=== PATIENT | male | born 1985 | race Caucasian/White ===

== ENCOUNTER 2018-11-17 01:24 | Emergency (ER) | payer BC, OTHER ==
[~2018-11-17 01:24] MED LIST: BACDS PO; CEP500 PO; FAM20 PO; IBU600 PO; LOR5/325 PO; NO CURRENT MEDS; NO ROUTINE MEDS; PER PO; PRO25 PO
--- NOTE | 2018-11-17 01:25 | ER Report ---
History and Physical Time Seen By MD: 01:23 HPI/ROS CHIEF COMPLAINT: Right flank pain HISTORY OF PRESENT ILLNESS: 32-year-old male presents with onset of right flank pain around 6:30 PM last evening. It became very intense around 8. Patient s aid several episodes of vomiting. Patient can use get relief by laying in a hot bathtub of water, the minute he gets out the pain returns. She states she's been having some intermittent low-grade right flank pain over the last several weeks to months. They've all resolved spontaneously. Tonight. It's unbearable REVIEW OF SYSTEMS: Respiratory: No cough, no dyspnea. Cardiovascular: No chest pain, no palpitations. Gastrointestinal: As above Musculoskeletal: As above Allergies: Coded Allergies: Penicillins (Verified Adverse Reaction, Unknown, "FEEL LIKE I HAVE THE FLU", 11/17/18) Uncoded Allergies: COLD AIR PRODUCES HIVES (Allergy, Mild, 06/01/07) Home Meds Active Scripts Tamsulosin Hcl (FLOMAX) 0.4 Mg Cap.er.24h, 0.4 MG PO QHS for ureteral relaxation, #14 CAP Prov:MICH VIERA DO 11/17/18 Ondansetron 4 Mg Odt (ONDANSETRON 4 MG ODT) 4 Mg Tab.rapdis, 4 MG PO Q6H PRN for PAIN, #15 TAB Prov:MICH VIERA DO 11/17/18 Hydrocodone Bit/Acetaminophen (HYDROCODON-ACETAMINOPHEN 5-325) 1 Each Tablet, 1 EACH PO Q4-6H PRN for PAIN, #15 TAKE ONE TABLET BY MOUTH EVERY 4-6 HOURS NEEDED FOR PAIN Prov:MICH VIERA DO 11/17/18 Reported Medications [No Routine Meds] No Conflict Check, 0 Refills 01/08/11 Past Medical/Surgical History History of kidney stones, history of genital malrotation of the gut, Reviewed Nurses Notes: Yes Old Medical Records Reviewed: Yes Hx Smoking: No Hx Substance Use Disorder: No Hx Alcohol Use: No Constitutional Vital Sign - Last 24 Hours 11/17/18 11/17/18 11/17/18 11/17/18 01:26 01:28 01:30 01:39 Temp 97.6 Pulse 70 81 Resp 20 B/P (MAP) 145/94 (111) 145/94 139/93 (108) Pulse Ox 94 95 O2 Delivery Room Air 11/17/18 11/17/18 11/17/18 11/17/18 01:54 02:00 02:09 02:11 Pulse 82 61 B/P (MAP) 141/99 (113) Pulse Ox 95 98 O2 Flow Rate 2.0 11/17/18 11/17/18 11/17/18 11/17/18 02:14 02:29 02:30 02:44 Pulse 63 64 66 B/P (MAP) 131/94 (106) Pulse Ox 97 11/17/18 02:48 B/P (MAP) 136/98 (111) Intake and Output 11/16/18 11/16/18 11/17/18 15:01 23:01 07:01 Intake Total 1000 ml Balance 1000 ml Physical Exam Vital signs stable, afebrile, pulse ox normal General Appearance: The patient is alert, has no immediate need for airway protection and no current signs of toxicity. Slightly pale appearing, skin warm and dry Eyes: Pupils equal and round no injection. Respiratory: Chest is non tender, lungs are clear to auscultation. Cardiac: regular rate and rhythm Gastrointestinal: Abdomen is soft and non tender, no masses, bowel sounds normal.+ Right CVA tenderness Musculoskeletal: Neck: Neck is supple and non tender. Extremities have full range of motion and are non tender. Skin: No rashes or lesions. DIFFERENTIAL DIAGNOSIS: After history and physical exam differential diagnosis was considered for flank pain including but not limited to musculoskeletal causes, kidney stone, pyelonephritis, shingles, and intra-abdominal causes such as diverticulitis and appendicitis. Medical Decision Making Data Points Result Diagram: 11/17/1813411/17/18134 Laboratory Hematology Test 11/17/18 01:35 Red Blood Count 5.46 M/uL (4.00-5.60) Mean Corpuscular Volume 89.2 fL (80.0-96.0) Mean Corpuscular Hemoglobin 30.7 pg (26.0-33.0) Mean Corpuscular Hemoglobin Concent 34.4 g/dL (32.0-36.0) Red Cell Distribution Width 12.2 % (11.5-14.5) Mean Platelet Volume 9.4 fL (7.2-11.1) Neutrophils (%) (Auto) 55.1 % (39.4-72.5) Lymphocytes (%) (Auto) 34.0 % (17.6-49.6) Monocytes (%) (Auto) 9.2 % (4.1-12.4) Eosinophils (%) (Auto) 1.4 % (0.4-6.7) Basophils (%) (Auto) 0.3 % (0.3-1.4) Nucleated RBC Relative Count (auto) 0.1 /100WBC Neutrophils # (Auto) 4.6 K/uL (2.0-7.4) Lymphocytes # (Auto) 2.8 K/uL (1.3-3.6) Monocytes # (Auto) 0.8 K/uL (0.3-1.0) Eosinophils # (Auto) 0.1 K/uL (0.0-0.5) Basophils # (Auto) 0.0 K/uL (0.0-0.1) Nucleated RBC Absolute Count (auto) 0.01 K/uL Sodium Level 143 mmol/L (137-145) Potassium Level 4.0 mmol/L (3.5-5.0) Chloride Level 107 mmol/L (98-107) Carbon Dioxide Level 21 mmol/L (22-30) Blood Urea Nitrogen 16 mg/dl (9-21) Creatinine 1.40 mg/dl (0.66-1.25) Glomerular Filtration Rate Calc 58.0 Random Glucose 124 mg/dl (75-110) Calcium Level 10.0 mg/dl (8.4-10.2) Total Bilirubin 1.1 mg/dl (0.2-1.3) Aspartate Amino Transf (AST/SGOT) 29 U/L (0-35) Alanine Aminotransferase (ALT/SGPT) 55 U/L (0-56) Alkaline Phosphatase 100 U/L (0-126) Total Protein 8.6 g/dl (6.3-8.2) Albumin 5.0 g/dl (3.5-5.0) Amylase Level 95 U/L (0-110) Lipase 116 U/L (23-300) Chemistry Test 11/17/18 01:35 White Blood Count 8.3 k/uL (4.5-11.0) Red Blood Count 5.46 M/uL (4.00-5.60) Hemoglobin 16.8 g/dL (14.0-18.0) Hematocrit 48.8 % (42.0-52.0) Mean Corpuscular Volume 89.2 fL (80.0-96.0) Mean Corpuscular Hemoglobin 30.7 pg (26.0-33.0) Mean Corpuscular Hemoglobin Concent 34.4 g/dL (32.0-36.0) Red Cell Distribution Width 12.2 % (11.5-14.5) Platelet Count 256 K/uL (150-450) Mean Platelet Volume 9.4 fL (7.2-11.1) Neutrophils (%) (Auto) 55.1 % (39.4-72.5) Lymphocytes (%) (Auto) 34.0 % (17.6-49.6) Monocytes (%) (Auto) 9.2 % (4.1-12.4) Eosinophils (%) (Auto) 1.4 % (0.4-6.7) Basophils (%) (Auto) 0.3 % (0.3-1.4) Nucleated RBC Relative Count (auto) 0.1 /100WBC Neutrophils # (Auto) 4.6 K/uL (2.0-7.4) Lymphocytes # (Auto) 2.8 K/uL (1.3-3.6) Monocytes # (Auto) 0.8 K/uL (0.3-1.0) Eosinophils # (Auto) 0.1 K/uL (0.0-0.5) Basophils # (Auto) 0.0 K/uL (0.0-0.1) Nucleated RBC Absolute Count (auto) 0.01 K/uL Glomerular Filtration Rate Calc 58.0 Calcium Level 10.0 mg/dl (8.4-10.2) Total Bilirubin 1.1 mg/dl (0.2-1.3) Aspartate Amino Transf (AST/SGOT) 29 U/L (0-35) Alanine Aminotransferase (ALT/SGPT) 55 U/L (0-56) Alkaline Phosphatase 100 U/L (0-126) Total Protein 8.6 g/dl (6.3-8.2) Albumin 5.0 g/dl (3.5-5.0) Amylase Level 95 U/L (0-110) Lipase 116 U/L (23-300) EKG/Imaging Imaging Results: CT scan of the abdomen and pelvis without contrast was obtained. The results of the study are COMPUTED TOMOGRAPHY ABDOMEN AND PELVIS WITHOUT INTRAVENOUS CONTRAST DATE OF EXAM: 11/17/2018 1:28 AM INDICATION: Right flank pain. COMPARISON: Report from [facility] and tomography 07/15/2008. TECHNIQUE: Noncontrast abdomen and pelvis CT performed. Sagittal and coronal reconstructions were performed. One of the following dose optimization techniques was utilized in the performance of this exam: Automated exposure control; adjustment of the mA and/or kV according to the patient's size; or use of an iterative reconstruction technique. Specific details can be referenced in the facility's radiology CT exam operational policy. FINDINGS: Lung bases: Minimal left base atelectasis. Calcified granuloma in the left base. Liver: Normal. Gallbladder and bile ducts: Normal. Spleen: Normal. Splenule. Pancreas: Normal. Adrenals: Normal. Kidneys, ureters and bladder: 4 mm calculus near the right ureterovesicular junction with moderate hydronephrosis/hydroureter. Additional small nonobstructing right renal calculus. 13 mm partially exophytic lesion at the mid anterior aspect of the left kidney measures greater than simple fluid density. Retroperitoneum and aorta: Nonaneurysmal aorta. No adenopathy. GI tract, mesentery and peritoneum: No evidence of obstruction. No pneumatosis, pneumoperitoneum or free fluid. Normal appendix. Small hiatal hernia which appears somewhat thick-walled, with mildly enlarged adjacent lymph nodes. Fluid in the distal esophagus. Prostate and seminal vesicles: Normal. Bones and soft tissues: No acute abnormality or suspicious lesion. Small fat- containing umbilical hernia. IMPRESSION: 1. 4 mm calculus at the right ureterovesicular junction with moderate hydronephrosis/hydroureter. Additional small nonobstructing right renal calculus. 2. Indeterminant 13 mm lesion at the mid anterior aspect of the left kidney. Consider nonemergent evaluation with ultrasound to attempt to determine whether this cystic or solid. 3. Small hiatal hernia that appears thick-walled with mildly enlarged adjacent lymph nodes. This could indicate underlying infectious or inflammatory process. Hyperplasia/neoplasm not excluded. Consider nonemergent gastroenterology consultation and potential endoscopic evaluation. 4. Fluid in the distal esophagus could indicate reflux or dysmotility. The study was read by the radiologist. I viewed the images myself on the PACS system. ED Course/Re-evaluation Clinical Indication for ER IV: Hydration, IV Access ED Course Patient was admitted to an examination room. H&P was done. The differential diagnoses was considered. Patient with acute right flank pain since last even ing. Likely has right CVA tenderness. Patient with a known history of stones, status post surgery in 2007. Patient was treated with a peripheral IV, normal saline bolus, Zofran, Phenergan, Dilaudid, Toradol. Patient went for CT scan which shows a 4 mm stone at the right UVJ. There was also an incidental finding of a 13 mm exophytic mass in the left kidney that needs further evaluation. Patient was informed of his results. We discharged home on Lortab, Zofran and Flomax. He is advised to contact Dr. Salmeron this week. Decision to Disposition Date: Nov 17, 2018 Decision to Disposition Time: 02:41 Depart Departure Latest Vital Signs Vital Signs Date Time Temp Pulse Resp B/P (MAP) Pulse Ox O2 Delivery O2 Flow Rate FiO2 11/17/18 02:48 136/98 (111) 11/17/18 02:44 66 97 11/17/18 02:11 2.0 11/17/18 01:28 97.6 20 Room Air Impression: Primary Impression: Right nephrolithiasis Additional Impression: Left kidney mass Condition: Improved Disposition: HOME OR SELF-CARE New Scripts Tamsulosin Hcl (FLOMAX) 0.4 Mg Cap.er.24h 0.4 MG PO QHS for ureteral relaxation, #14 CAP Prov: MICH VIERA DO 11/17/18 Ondansetron 4 Mg Odt (ONDANSETRON 4 MG ODT) 4 Mg Tab.rapdis 4 MG PO Q6H PRN for PAIN, #15 TAB Prov: MICH VIERA DO 11/17/18 Hydrocodone Bit/Acetaminophen (HYDROCODON-ACETAMINOPHEN 5-325) 1 Each Tablet 1 EACH PO Q4-6H PRN for PAIN, #15 TAKE ONE TABLET BY MOUTH EVERY 4-6 HOURS NEEDED FOR PAIN Prov: MICH VIERA DO 11/17/18 Patient Instructions: Kidney Stones (ED) Additional Instructions: Follow-up with Dr. Salmeron this week to have a left kidney mass evaluated and right kidney stone Problem Qualifiers MICH VIERA DO Nov 17, 2018 01:25
[2018-11-17] MEDS ORDERED: NS(*) 0.9% 1000 ML BAG 1,000 ML IV ONE (01:28)
[2018-11-17] MEDS ORDERED: KETOROLAC 30 MG/ML VIAL IVP ONE (01:30)
[2018-11-17] MEDS ORDERED: ONDANSETRON 4 MG/2 ML VIAL IVP ONE (01:30)
[2018-11-17] MEDS ORDERED: HYDROMORPHONE HCL 1 MG/ML SYRINGE IVP ONE (01:30)
[2018-11-17] MEDS ORDERED: PROMETHAZINE 25 MG/ML 1 ML AMP IVP ONE (01:30)
[2018-11-17 02:08] LABS: PLATELET COUNT, AUTOMATED 256 K/uL (150-450)
--- NOTE | 2018-11-17 02:37 | RADIOLOGY IMAGING REPORT ---
FACILITY: [facility] [place]IENT NAME: Pj Bonilla : 1985 MR: [id number] V: [id number] EXAM DATE: ORDERING PHYSICIAN: MICH VIERA TECHNOLOGIST: Location: [facility] Patient: Pj Bonilla : 1985 Visit/Account:[id number] Date of Sevice: 11/17/2018 COMPUTED TOMOGRAPHY ABDOMEN AND PELVIS WITHOUT INTRAVENOUS CONTRAST DATE OF EXAM: 11/17/2018 1:28 AM INDICATION: Right flank pain. COMPARISON: Report from [facility] and tomography 07/15/2008. TECHNIQUE: Noncontrast abdomen and pelvis CT performed. Sagittal and coronal reconstructions were pe rformed. One of the following dose optimization techniques was utilized in the performance of this e xam: Automated exposure control; adjustment of the mA and/or kV according to the patient's size; or u se of an iterative reconstruction technique. Specific details can be referenced in the facility's r adiology CT exam operational policy. FINDINGS: Lung bases: Minimal left base atelectasis. Calcified granuloma in the left base. Liver: Normal. Gallbladder and bile ducts: Normal. Spleen: Normal. Splenule. Pancreas: Normal. Adrenals: Normal. Kidneys, ureters and bladder: 4 mm calculus near the right ureterovesicular junction with moderate h ydronephrosis/hydroureter. Additional small nonobstructing right renal calculus. 13 mm partially ex ophytic lesion at the mid anterior aspect of the left kidney measures greater than simple fluid densi ty. Retroperitoneum and aorta: Nonaneurysmal aorta. No adenopathy. GI tract, mesentery and peritoneum: No evidence of obstruction. No pneumatosis, pneumoperitoneum or free fluid. Normal appendix. Small hiatal hernia which appears somewhat thick-walled, with mildly enlarged adjacent lymph nodes. Fluid in the distal esophagus. Prostate and seminal vesicles: Normal. Bones and soft tissues: No acute abnormality or suspicious lesion. Small fat-containing umbilical h ernia. IMPRESSION: 1. 4 mm calculus at the right ureterovesicular junction with moderate hydronephrosis/hydroureter. A dditional small nonobstructing right renal calculus. 2. Indeterminant 13 mm lesion at the mid anterior aspect of the left kidney. Consider nonemergent e valuation with ultrasound to attempt to determine whether this cystic or solid. 3. Small hiatal hernia that appears thick-walled with mildly enlarged adjacent lymph nodes. This co uld indicate underlying infectious or inflammatory process. Hyperplasia/neoplasm not excluded. Cons ider nonemergent gastroenterology consultation and potential endoscopic evaluation. 4. Fluid in the distal esophagus could indicate reflux or dysmotility. Report Dictated By: Fredrick Robles MD at 11/17/2018 2:18 AM Report E-Signed By: Fredrick Robles MD at 11/17/2018 2:31 AM [id number]
[2018-11-17] MEDS ORDERED: ACET/HYDROC 5/325MG TH ER ONLY 2 TAB/BOTTLE PO ONE ×2 (02:40)
[2018-11-17] MEDS ORDERED: ONDANSETRON 4 MG ODT TH SL ONE (02:40)
[2018-11-17] MEDS ORDERED: ONDA4TAB9 PO (02:44)
[2018-11-17] MEDS ORDERED: LOR5/325 PO (02:44)
[2018-11-17] MEDS ORDERED: TAMS0.4C25 PO (02:44)
[2018-11-17 02:48] VITALS: BP 136/98
== END 2018-11-17 02:56 | disposition home or self-care (01) ==
LOC: ER 01:39
DX: N20.0 Calculus of kidney (principal); N28.9 Disorder of kidney and ureter, unspecified
CPT/HCPCS: 74176; 82150; 83690; 85025; 96361; 96374; 96375; 99284; J1170; J1885; J2405; J2550; J7030; S0119; 82040; 82247; 82310; 82374; 82435; 82565; 82947; 84075; 84132; 84155; 84295; 84450; 84460; 84520